=== PATIENT | male | born 1995 ===

== ENCOUNTER 2020-11-30 08:35 | Emergency (ER) | payer SELFPAY ==
[2020-11-30 09:57] VITALS: BP 137/78
--- NOTE | 2020-11-30 10:12 | Emergency Department Report ---
Chief Complaint: Pain General Stated Complaint: CHILLS,BODY ACHES,FATIGUE/LOSS OF SMELL - HPI History of Present Illness: 25-year-old -[place] male presents to the emergency room for Covid-like symptoms. Patient complains of chills body aches fatigue loss of taste and smell. Patient states is been going on for 3 days. Patient comes in asking for a return to work slip in for Covid test. - Exam Vital Signs: Vital Signs 11/30/20 08:58 Temperature 98.8 F Pulse Rate 48 L Respiratory 18 Rate Blood Pressure 137/78 O2 Sat by Pulse 99 Oximetry Physical Exam: General: Awake, appropriately interactive, no acute distress. Neck: Supple. Full range of motion intact. Cardiovascular: Normal peripheral perfusion. Pulmonary: No respiratory distress. Patient is speaking normally without use of accessory muscles. Skin: No apparent rashes or lesions. Neurological: No facial asymmetry. Speech is clear. Follows commands. Patient is alert and oriented. Musculoskeletal: Full range of motion, no crepitus. No tenderness to palpate nonerythematous no edema test appreciated. Able to bear weight and ambulate without difficulty. Distal neurovascular and motor/sensory function is intact. Psych: Cooperative. Appropriate mood and affect. MSE screening note: Focused history and physical exam performed. Due to findings the following was ordered: 25-year-old -[place] male presents to the emergency room for Covid-like symptoms. Patient complains of chills body aches fatigue loss of taste and smell. Patient states is been going on for 3 days. Patient comes in asking for a return to work slip in for Covid test. Patient is referred to [facility] urgent care for Covid testing. Discussed with patient to increase his fluids ibuprofen Tylenol rest. Patient verbalized understanding ED Disposition for MSE Disposition: DC-01 TO HOME OR SELFCARE Is pt being admited?: No Does the pt Need Aspirin: No Condition: Stable Additional Instructions: Your symptoms appear most consistent with a nonspecific viral syndrome. However, given this current pandemic, COVID-19 is in the differential of possibilities. I do recommend repeat outpatient Covid 19 testing. In the meantime, isolate/quarantine yourself and stay away from anyone who is elderly, immunocompromised or chronically ill. You can use ibuprofen every 6-8 hours and Tylenol every 4-8 hours, using the dosing on the back of the bottle, as needed for any fever or body aches. Return to the emergency department with any worsening of your symptoms, development of chest pain or shortness of breath, or with any acute distress. Patient stable. Recommend calling or getting online to [facility] urgent care as they are doing Covid testing until 8 PM today. Website was given to the patient. Discussed increase fluids ibuprofen Tylenol and quarantine. Referrals: [facility], urgent care [Other] - 3-5 Days Time of Disposition: 10:12
== END 2020-11-30 10:45 | disposition home or self-care (01) ==
LOC: EDBD → ED 08:35
DX: R68.83 Chills (without fever) (principal); R53.83 Other fatigue; R52 Pain, unspecified; R43.9 Unspecified disturbances of smell and taste
CPT/HCPCS: 99282